=== PATIENT | male | born 1980 | race Caucasian/White ===

== ENCOUNTER 2021-07-11 19:12 | Emergency (ER) | payer OTHER ==
[~2021-07-11] VITALS: Ht 175.3 cm; Wt 72.7 kg
--- NOTE | 2021-07-11 20:23 | RAD ---
EXAM: AP View of the chest DATE: 07/11/2021 7:46 PM INDICATION: Reason: tachy / Spl. Instructions: / History: COMPARISON: No Prior FINDINGS: The heart is not enlarged. Mediastinal and hilar contours are normal. No focal parenchymal airspace opacity. No pleural effusion or pneumothorax. IMPRESSION: 1. No radiographic evidence for acute cardiopulmonary process. Electronically signed by: Cody Leal MD (07/11/2021 8:20 PM) PACO
[2021-07-11] MEDS ORDERED: PIPERACILLIN/TAZOBACTAM 4.5 GM in IV NORMAL SALINE 100ML 100 ML IV ONE (20:30)
[2021-07-11] MEDS ORDERED: IV NORMAL SALINE 1000ML BAG 1,000 ML IV ONE ×2 (20:30)
[2021-07-11 20:35] LABS: INFLUENZA A PATIENT NEGATIVE (NEGATIVE); INFLUENZA B PATIENT NEGATIVE (NEGATIVE)
[2021-07-11 20:37] LABS: BASO % 0 % (0-3); EOS # 0.2 x10^3/uL (0.0-0.7); EOS % 2 % (0-3); HEMATOCRIT 36.9 % (39.0-53.0); HEMOGLOBIN 12.3 g/dL (13.0-17.5); LYMPH # 2.4 x10^3/uL (1.0-4.8); LYMPH % 19 % (24-48); MEAN CORPUSCULAR HEMOGLOBIN 28 pg (25-35); MEAN CORPUSCULAR HGB CONC 34 g/dL (31-37); MEAN CORPUSCULAR VOLUME 83 fL (79-100); MONO # 1.4 x10^3/uL (0.0-1.1); MONO % 11 % (0-9); NEUT # 8.5 x10^3/uL (1.8-7.7); NEUT % 68 % (31-73); PLATELET COUNT 444 x10^3/uL (140-400); RED BLOOD COUNT 4.44 x10^6/uL (4.30-5.70); RED CELL DISTRIBUTION WIDTH 14.3 % (11.5-14.5); WHITE BLOOD COUNT 12.6 x10^3/uL (4.0-11.0)
[2021-07-11 20:49] LABS: CALCIUM 8.6 mg/dL (8.5-10.1); CREATININE 0.9 mg/dL (0.7-1.3); GFR 93.9; POTASSIUM 5.1 mmol/L (3.5-5.1)
[2021-07-11 20:54] LABS: ALBUMIN 2.6 g/dL (3.4-5.0); ALBUMIN/GLOBULIN RATIO 0.6 (1.0-1.7); MAGNESIUM 2.2 mg/dL (1.8-2.4); TOTAL BILIRUBIN 0.3 mg/dL (0.2-1.0); TOTAL PROTEIN 7.1 g/dL (6.4-8.2)
[2021-07-11] MEDS ORDERED: IOHEXOL 300 MG/ML 100ML VIAL. IV ONE (21:00)
[2021-07-11] MEDS ORDERED: KETOROLAC 15 MG/ML VIAL. IVP ONE (21:00)
--- NOTE | 2021-07-11 21:11 | PHYS DOC ---
Past Medical History Past Medical History: HIV, MRSA Additional Past Medical Histor: rheumatic heart disease, polysubstance use disorder Drug Use: Cocaine, Marijuana, Methamphetamine General Adult EDM: Chief Complaint: MULTIPLE COMPLAINTS HPI: HPI: Patient is a 41 year old male with history of polysubstance use disorder, HIV positive, prior MRSA who presents with shortness of breath, cough, bilateral neck pain, bilateral ear pain, body aches and lightheadedness. He reports that his ears "popped" and shortly after, he had some bloody discharge. Patient states that he has been clean from all substances for few months. He is not currently on medications for his HIV positive diagnosis, but he used to see ID at [place] ([facility]). He has not been vaccinated against COVID-19 and he has not had a flu shot this season. Patient denies fever, chills, nasal congestion, focal weakness and paresthesias. Review of Systems: Review of Systems: Constitutional: See HPI Eyes: Denies change in visual acuity, visual field deficits or discharge HENT: See HPI Respiratory: See HPI Cardiovascular: Denies chest pain, palpitations or edema GI: Denies abdominal pain, nausea, vomiting, bloody stools or diarrhea : Denies dysuria or hematuria Musculoskeletal: Denies back pain or joint pain Integument: Denies rash or other skin lesion Neurologic: Denies headache, focal weakness or sensory changes Heart Score: C/O Chest Pain: No Current Medications: Current Medications Medications (Trade) Dose Ordered Sig/Joanna Start Time Stop Time Status Last Admin Dose Admin Cefepime HCl (Maxipime) 2 gm 1X ONCE 07/12/21 00:00 07/12/21 00:01 Ketorolac Tromethamine (Toradol 15mg Vial) 15 mg 1X ONCE 07/11/21 21:00 07/11/21 21:01 Levofloxacin/ Dextrose 150 ml @ 100 mls/hr 1X ONCE 07/11/21 21:00 07/11/21 22:29 Piperacillin Sod/ Tazobactam Sod 4.5 gm/Sodium Chloride 100 ml @ 200 mls/hr 1X ONCE 07/11/21 20:30 07/11/21 20:59 Cancel Sodium Chloride 1,000 ml @ 1,000 mls/hr 1X ONCE 07/11/21 20:30 07/11/21 21:29 Vancomycin HCl 1.5 gm/Sodium Chloride 500 ml @ 250 mls/hr 1X ONCE 07/11/21 22:00 07/11/21 23:59 Allergies: Allergies: Allergies Coded Allergies Type Severity Reaction Last Updated Verified Penicillins Allergy Severe THROAT SWELLS 07/11/21 Yes Physical Exam: PE: Constitutional: Well developed, well nourished, no acute distress, non-toxic appearance. HENT: Normocephalic, atraumatic, oropharynx moist, no oral exudates, nose normal. Tympanic membranes obviously and severely infected with perforation. Eyes: PERRLA, EOMI, conjunctiva normal, no discharge. Neck: Normal range of motion, no tenderness, bilateral anterior cervical and submandibular lymphadenopathy, no stridor. Cardiovascular: Elevated heart rate with regular rhythm. Lungs & Thorax: Bilateral breath sounds clear to auscultation. Skin: Warm, dry, no erythema, no rash. Back: No tenderness, no CVA tenderness. Extremities: No tenderness, no cyanosis, no clubbing, ROM intact, no edema, no obvious deformities. Neurologic: Alert and oriented x4, no focal deficits noted. Current Patient Data: Labs: Laboratory Tests Test 07/11/21 20:00 07/11/21 20:10 07/11/21 20:18 07/11/21 22:56 SARS-CoV-2 Antigen (Rapid) Negative (NEGATIVE) Influenza Type A Antigen Negative (NEGATIVE) Influenza Type B Antigen Negative (NEGATIVE) White Blood Count 12.6 x10^3/uL (4.0-11.0) Red Blood Count 4.44 x10^6/uL (4.30-5.70) Hemoglobin 12.3 g/dL (13.0-17.5) Hematocrit 36.9 % (39.0-53.0) Mean Corpuscular Volume 83 fL (79-100) Mean Corpuscular Hemoglobin 28 pg (25-35) Mean Corpuscular Hemoglobin Concent 34 g/dL (31-37) Red Cell Distribution Width 14.3 % (11.5-14.5) Platelet Count 444 x10^3/uL (140-400) Neutrophils (%) (Auto) 68 % (31-73) Lymphocytes (%) (Auto) 19 % (24-48) Monocytes (%) (Auto) 11 % (0-9) Eosinophils (%) (Auto) 2 % (0-3) Basophils (%) (Auto) 0 % (0-3) Neutrophils # (Auto) 8.5 x10^3/uL (1.8-7.7) Lymphocytes # (Auto) 2.4 x10^3/uL (1.0-4.8) Monocytes # (Auto) 1.4 x10^3/uL (0.0-1.1) Eosinophils # (Auto) 0.2 x10^3/uL (0.0-0.7) Basophils # (Auto) 0.0 x10^3/uL (0.0-0.2) Sodium Level 138 mmol/L (136-145) Potassium Level 5.1 mmol/L (3.5-5.1) Chloride Level 99 mmol/L (98-107) Carbon Dioxide Level 30 mmol/L (21-32) Anion Gap 9 (6-14) Blood Urea Nitrogen 15 mg/dL (8-26) Creatinine 0.9 mg/dL (0.7-1.3) Estimated GFR (Cockcroft-Gault) 93.9 BUN/Creatinine Ratio 17 (6-20) Glucose Level 97 mg/dL (70-99) Lactic Acid Level 1.9 mmol/L (0.4-2.0) Calcium Level 8.6 mg/dL (8.5-10.1) Magnesium Level 2.2 mg/dL (1.8-2.4) Total Bilirubin 0.3 mg/dL (0.2-1.0) Aspartate Amino Transf (AST/SGOT) 15 U/L (15-37) Alanine Aminotransferase (ALT/SGPT) 36 U/L (16-63) Alkaline Phosphatase 136 U/L (46-116) Troponin I High Sensitivity 8 ng/L (4-75) Total Protein 7.1 g/dL (6.4-8.2) Albumin 2.6 g/dL (3.4-5.0) Albumin/Globulin Ratio 0.6 (1.0-1.7) Lipase 89 U/L (73-393) Urine Collection Type Unknown Urine Color Yellow Urine Clarity Clear Urine pH 6.5 (<5.0-8.0) Urine Specific [place] 1.020 (1.000-1.030) Urine Protein Negative mg/dL (NEG-TRACE) Urine Glucose (UA) Negative mg/dL (NEG) Urine Ketones (Stick) Negative mg/dL (NEG) Urine Blood Negative (NEG) Urine Nitrite Negative (NEG) Urine Bilirubin Negative (NEG) Urine Urobilinogen Dipstick 1.0 mg/dL (0.2 mg/dL) Urine Leukocyte Esterase Negative (NEG) Urine RBC Occ /HPF (0-2) Urine WBC Occ /HPF (0-4) Urine Squamous Epithelial Cells Occ /LPF Urine Bacteria 0 /HPF (0-FEW) Urine Opiates Screen Neg (NEG) Urine Methadone Screen Neg (NEG) Urine Barbiturates Neg (NEG) Urine Phencyclidine Screen Neg (NEG) Urine Amphetamine/Methamphetamine Pos (NEG) Urine Benzodiazepines Screen Neg (NEG) Urine Cocaine Screen Neg (NEG) Urine Cannabinoids Screen Neg (NEG) Urine Ethyl Alcohol Neg (NEG) 07/11/21 20:18 07/11/21 20:18 Vital Signs: Vital Signs Date Time Temp Pulse Resp B/P (MAP) Pulse Ox O2 Delivery O2 Flow Rate FiO2 07/11/21 23:12 115 20 170/99 (122) 98 Room Air 07/11/21 21:47 120 20 160/88 (112) 98 Room Air 07/11/21 21:20 116 21 158/94 (115) 99 Room Air 07/11/21 21:05 120 21 165/95 (118) 99 Room Air 07/11/21 20:50 116 21 163/98 (119) 98 Room Air 07/11/21 20:35 124 21 164/97 (119) 98 Room Air 07/11/21 20:20 132 20 164/101 (122) 98 Room Air 07/11/21 20:05 126 18 176/104 (128) 98 Room Air 07/11/21 19:50 128 12 168/104 (125) 98 Room Air 07/11/21 19:46 132 19 178/104 (128) 98 Room Air 07/11/21 19:18 99.0 142 17 176/99 (124) 100 Room Air 99.0 EKG: EKG: EKG Interpreted by Dr. Peralta at 1949: Sinus tachycardia 130 bpm with no ectopic beats. QT 270 ms/QTc 403 ms. No STEMI. Radiology/Procedures: Radiology/Procedures: PROCEDURE: CT HEAD WO CONTRAST EXAM: CT Head without IV contrast CLINICAL HISTORY: Reason: sepsis; HIV/AIDS not on meds; purulence to R TM / Spl. Instructions: / History: COMPARISON: None. TECHNIQUE: Routine CT of the head without contrast. [facility] compliance statement - One or more of the following individualized dose reduction techniques were utilized for this study: 1. Automated exposure control 2. Adjustment of the mA and/or kV according to patient size 3. Use of iterative reconstruction technique FINDINGS: There is no evidence of hemorrhage, mass or extra-axial fluid collection. Nye-white differentiation is maintained with no evidence of edema. There is no mass effect or shift of the intracranial structures. The ventricles, basilar cisterns and cortical sulci are normal in size and configuration for the patients stated age. The cerebellum and brainstem are unremarkable. The calvarium demonstrates no evidence of fracture or focal lesion. Multifocal paranasal sinus opacification, sinusitis. Mastoid air cell opacification, greater on the right, can be correlated for possible mastoiditis. Partial opacification in the middle ear bilaterally. The visualized portions of the orbits are normal. IMPRESSION: 1. No evidence for acute intracranial process. 2. Multifocal paranasal sinus opacification, sinusitis. 3. Mastoid air cell opacification, greater on the right, can be correlated for possible mastoiditis. 4. Partial opacification in the middle ear bilaterally. Electronically signed by: Cody Leal MD (07/11/2021 9:53 PM) [facility]: CT SOFT TISSUE NECK W/CONTRAST Exam: CT neck with contrast INDICATION: Sepsis, HIV/AIDS TECHNIQUE: Sequential axial images through the neck obtained following the administration of 75 mL of Omni 300 IV contrast. Sagittal and coronal reformatted images were reconstructed from the axial data and reviewed. Exposure: One or more of the following in the visualized dose reduction techniques were utilized for this examination: 1. Automated exposure control 2. Adjustment of the MA and/or KV according to patient size 3. Use of iterative of reconstructive technique Comparisons: CT head without contrast same day FINDINGS: Visualized intracranial structures are unremarkable. Extensive opacification of the maxillary sinuses, frontal sinuses, ethmoid air cells and sphenoid sinuses. Periodontal disease with periapical lucency surrounding the right and left mandibular molars. There is near complete opacification of the right mastoid air cells and partial opacification of the left mastoid air cells. There is partial opacification of the right middle ear cavity and left middle ear cavity. No evidence for osseous erosion identified. Cervical vasculature is patent. There is enlargement of the adenoid and palatine tonsils bilaterally. No focal fluid collection. Narrowing of the nasopharynx and oropharynx. The hypopharynx and larynx are otherwise unremarkable. Thyroid and salivary glands are within normal limits. No enlarged cervical lymph nodes are identified. No suspicious osseous lesions or acute fractures. IMPRESSION: 1. Near complete opacification of the right mastoid air cells and partial opacities of the left mastoid air cells. There is partial opacification of the right and left middle ear cavities. Findings could relate to infection. No evidence for intracranial extension or cortical erosion. 2. Extensive paranasal sinus opacification. 3. Enlargement of the adenoid and palatine tonsils which could be reactive. Associated narrowing of the nasal pharynx and oropharynx. Correlate with symptomatology. Electronically signed by: Hermes Shahid MD (07/11/2021 10:05 PM) [facility] PROCEDURE: CHEST AP ONLY EXAM: AP View of the chest DATE: 07/11/2021 7:46 PM INDICATION: Reason: tachy / Spl. Instructions: / History: COMPARISON: No Prior FINDINGS: The heart is not enlarged. Mediastinal and hilar contours are normal. No focal parenchymal airspace opacity. No pleural effusion or pneumothorax. IMPRESSION: 1. No radiographic evidence for acute cardiopulmonary process. Electronically signed by: Cody Leal MD (07/11/2021 8:20 PM) PACO Course & Med Decision Making: Course & Med Decision Making Pertinent Labs and Imaging studies reviewed. (See chart for details) Patient is a 41-year-old male with history of AIDS unmedicated that presents with bilateral ear pain and several other complaints. Patient exam concerning for mastoiditis and sepsis. Additionally, patient is HIV positive status without treatment for years, which is concerning for deterioration into AIDS. Full work-up today will include labs, ekg, cxr, ct head/maxilofacial and soft tissue neck. Given patient infectious history, iv vanc, cefipime and levaquin started. CT imaging shows bilateral mastoiditis. Given patient's work-up and these findings, he is septic secondary to mastoiditis and likely has some risk for deterioration to AIDS. 2155: Spoke with Dr. Betancourt ([facility]) regarding patient case. He concurs that patient requires higher level of care at a facility that has ENT and possibly OFMS capabilities. Spoke with the ER physician Dr. Ernandez at [facility] (formerly [facility]), who states that while they do have OMFS on-call, ENT is not available over the weekend. I then contacted the [facility] transfer center. [facility] has a bed available with ENT capabilities. Currently awaiting callback for provider to provider report. Nursing staff made me aware that the patient became very anxious in the exam room. He had unhooked himself from the monitors and was pacing. I went in to have a discussion with the patient about why he was feeling anxious and possibly provide medication to treat it. At that time I informed him of the findings of septicemia secondary to bilateral mastoiditis. I made him aware that the plan was to transfer him to [facility] for higher level of care, where ENT is available. At that time, patient verbalized that he adamantly does not wish to be admitted or transferred for admission. At bedside, I had a lengthy discussion with him about the severity of his illness of sepsis secondary to mastoiditis in the setting of an immunocompromised patient, as he is HIV positive without treatment for several years. At that time, patient states that he did not think that he would be admitted for his visit today. He states "I thought it would be a quick look in my ear and I would go home with some antibiotics." He states that he is not ready to be admitted to the hospital at this time, as he has a dog at home and he needs to "make other arrangements and take care of some things." I again asked if he would accept treatment for his anxiety, and revisit the conversation after he felt less anxious. He declined. Patient was urged to stay by both myself and Dr. Peralta, attending physician in the department at the time, and was counseled by both of us on the risks of declining or even delaying treatment and benefits of transfer for care. Risks to declining or delaying treatment were explained to him, including worsening of his condition, infection of [employer]OLDER INFORMATION CLERK, permanent disability, loss of current lifestyle, . Benefits were explained to him that he may be treated with IV antibiotics, have the specialist oversee his care, and reestablish treatment for HIV positive status. Patient can verbalize in his own words these risks and benefits, and still insists on leaving AGAINST MEDICAL ADVICE. He demonstrated full decison making capacity. Although the patient leaving AGAINST MEDICAL ADVICE is not ideal, patient was provided detailed follow-up instructions as wel l as oral antibiotic treatment that would cover both Pseudomonas and staph aureus. Patient also understands that if any point in time he changes his mind, he may return to the emergency department for treatment. [place] through conversation with the patient about risks patient leaving AMA, [facility] transfer center did call back. I left the room briefly to inform the transfer center that we were in the process of speaking to him about his treatment plan. They were informed after the patient had decided to leave that he would no longer require transfer to their facility. Dragon Disclaimer: Dragon Disclaimer: This electronic medical record was generated, in whole or in part, using a voice recognition dictation system. Departure Departure Impression: Primary Impression: Acute mastoiditis with other complications, bilateral Additional Impressions: Septicemia associated with acquired immune deficiency syndrome (AIDS) History of HIV or AIDS History of rheumatic heart disease History of MRSA infection Left against medical advice Disposition: LEFT AGAINST MEDICAL ADVICE Admitting Physician: WILBUR Borja) Condition: GRAVE Referrals: NO PCP (PCP) Patient Instructions: Discharge Against Medical Advice, Mastoiditis Additional Instructions: As discussed, you should take the antibiotics prescribed to you as directed as well as follow-up with ENT as soon as humanly possible. We would be more than happy for you to return for further treatment and management of your current mastoiditis if you change your mind at any point in time. Scripts Clindamycin Hcl (CLINDAMYCIN HCL) 150 Mg Capsule 3 CAP PO TID for 10 Days, #90 CAP Prov: VERONIQUE SMITH 07/11/21 Levofloxacin (LEVOFLOXACIN) 750 Mg Tablet 1 TAB PO DAILY, #10 TAB Prov: VERONIQUE SMITH 07/11/21 VERONIQUE SMITH Jul 11, 2021 21:11
[2021-07-11] MEDS ORDERED: CONTRAST GIVEN. MC PRN (21:15)
--- NOTE | 2021-07-11 21:56 | RAD ---
EXAM: CT Head without IV contrast CLINICAL HISTORY: Reason: sepsis; HIV/AIDS not on meds; purulence to R TM / Spl. Instructions: / His tory: COMPARISON: None. TECHNIQUE: Routine CT of the head without contrast. PQRS compliance statement - One or more of the following individualized dose reduction techniques wer e utilized for this study: 1. Automated exposure control 2. Adjustment of the mA and/or kV according to patient size 3. Use of iterative reconstruction technique FINDINGS: There is no evidence of hemorrhage, mass or extra-axial fluid collection. Nye-white differentiation is maintained with no evidence of edema. There is no mass effect or shift of the intracranial structures. The ventricles, basilar cisterns and cortical sulci are normal in size and configuration for the hannah ents stated age. The cerebellum and brainstem are unremarkable. The calvarium demonstrates no evidence of fracture or focal lesion. Multifocal paranasal sinus opacification, sinusitis. Mastoid air cell opacification, greater on the r ight, can be correlated for possible mastoiditis. Partial opacification in the middle ear bilaterally . The visualized portions of the orbits are normal. IMPRESSION: 1. No evidence for acute intracranial process. 2. Multifocal paranasal sinus opacification, sinusitis. 3. Mastoid air cell opacification, greater on the right, can be correlated for possible mastoiditis. 4. Partial opacification in the middle ear bilaterally. Electronically signed by: Cody Leal MD (07/11/2021 9:53 PM) [facility]
[2021-07-11] MEDS ORDERED: VANCOMYCIN 1.5 GM in IV NORMAL SALINE 500ML BAG 500 ML IV ONE (22:00)
--- NOTE | 2021-07-11 22:08 | RAD ---
Exam: CT neck with contrast INDICATION: Sepsis, HIV/AIDS TECHNIQUE: Sequential axial images through the neck obtained following the administration of 75 mL of Omni 300 IV contrast. Sagittal and coronal reformatted images were reconstructed from the axial data and reviewed. Exposure: One or more of the following in the visualized dose reduction techniques were utilized for this examination: 1. Automated exposure control 2. Adjustment of the MA and/or KV according to patient size 3. Use of iterative of reconstructive technique Comparisons: CT head without contrast same day FINDINGS: Visualized intracranial structures are unremarkable. Extensive opacification of the maxillary sinuses , frontal sinuses, ethmoid air cells and sphenoid sinuses. Periodontal disease with periapical lucenc y surrounding the right and left mandibular molars. There is near complete opacification of the right mastoid air cells and partial opacification of the left mastoid air cells. There is partial opacification of the right middle ear cavity and left middle ear cavity. No evidence for osseous erosion identified. Cervical vasculature is patent. There is enlargement of the adenoid and palatine tonsils bilaterally. No focal fluid collection. Narr owing of the nasopharynx and oropharynx. The hypopharynx and larynx are otherwise unremarkable. Thyroid and salivary glands are within normal limits. No enlarged cervical lymph nodes are identified. No suspicious osseous lesions or acute fractures. IMPRESSION: 1. Near complete opacification of the right mastoid air cells and partial opacities of the left mast oid air cells. There is partial opacification of the right and left middle ear cavities. Findings cou ld relate to infection. No evidence for intracranial extension or cortical erosion. 2. Extensive paranasal sinus opacification. 3. Enlargement of the adenoid and palatine tonsils which could be reactive. Associated narrowing of the nasal pharynx and oropharynx. Correlate with symptomatology. Electronically signed by: Hermes Shahid MD (07/11/2021 10:05 PM) [facility]
[2021-07-11 23:03] LABS: BILIRUBIN,URINE NEGATIVE (NEG); CLARITY,URINE CLEAR; COLOR,URINE YELLOW; NITRITE,URINE NEGATIVE (NEG); PH,URINE 6.5 (<5.0-8.0); PROTEIN,URINE NEGATIVE (NEG-TRACE)
[2021-07-11] MEDS ORDERED: CLIN150C16 PO (23:04)
[2021-07-11] MEDS ORDERED: LEVO750T5 PO (23:04)
[2021-07-11 23:10] LABS: BARBITURATES NEG (NEG); BENZODIAZEPINES NEG (NEG); CANNABINOIDS NEG (NEG); COCAINE NEG (NEG); METHADONE NEG (NEG); OPIATES NEG (NEG); PHENCYCLIDINE NEG (NEG)
[2021-07-11 23:12] VITALS: BP 170/99
[2021-07-11 23:12] LABS: AMPHETAMINE/METHAMPHETAMINE POS (NEG)
[2021-07-11 23:20] LABS: BACTERIA,URINE 0 /HPF (0-FEW); RBC,URINE OCC /HPF (0-2); WBC,URINE OCC /HPF (0-4)
[2021-07-12] MEDS ORDERED: CEFEPIME HCL IV Push 2 GM VIAL. IVP ONE
[2021-07-12] MEDS ORDERED: IOHEXOL 300 MG/ML 100ML VIAL. ONE (01:21)
--- NOTE | 2021-07-12 01:50 | EKG ---
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
--- NOTE | 2021-07-12 15:07 | NUR ---
IP: Informed pt of negative covid test. Pt verbalized understanding.
== END 2021-07-11 23:20 | disposition left against medical advice (07) ==
LOC: ER 19:12
DX: H70.003 Acute mastoiditis without complications, bilateral (principal); A41.89 Other specified sepsis; B20 Human immunodeficiency virus [HIV] disease; R65.21 Severe sepsis with septic shock; Z20.822 Contact with and (suspected) exposure to COVID-19; Z86.79 Personal history of other diseases of the circulatory system; Z86.14 Personal history of Methicillin resistant Staphylococcus aureus infection; Z88.0 Allergy status to penicillin
CPT/HCPCS: 36415; 70450; 70491; 71045; 80053; 80307; 81001; 83605; 83690; 83735; 84484; 85025; 87040; 87426; 87428; 93005; 96365; 96366; 96368; 96375; 99285; J0692; J1885; J1956; J3370; J7030; J7040; Q9967; U0003; U0005